=== PATIENT | female | born 1965 | race African-American/Black ===

== ENCOUNTER 2017-01-15 13:21 | Emergency (ER) | payer BC ==
[~2017-01-15] VITALS: Ht 165.1 cm; Wt 67.9 kg
[~2017-01-15 13:21] MED LIST: ASPIR-TRIN325 M1 PO; NOHOMEMEDS; PriLOSEC PO
[2017-01-15 14:02] VITALS: BP 121/78
[2017-01-15] MEDS ORDERED: PEN-VEE K,VEET500 MG PO (17:22)
[2017-01-15] MEDS ORDERED: PERCOCET 5/31 TABLET PO (17:22)
[2017-01-15] MEDS ORDERED: MOTRIN800 MG PO (17:22)
== END 2017-01-15 17:43 | disposition home or self-care (01) ==
LOC: EME 13:21
DX: K08.89 Other specified disorders of teeth and supporting structures (principal); M79.604 Pain in right leg
CPT/HCPCS: 93970; 99281; 99283

== ENCOUNTER → 2017-05-30 | Outpatient (CLI) | payer BC ==
[~2017-05-30] VITALS: Ht 167.6 cm; Wt 72.6 kg
[~2017-05-30] MED LIST changes: +MOTRIN800 MG PO; +PEN-VEE K,VEET500 MG PO; +PERCOCET 5/31 TABLET PO
== END | disposition home or self-care (01) ==
LOC: AMB 10:30
PROC: 0DJD8ZZ Inspection of Lower Intestinal Tract, Via Natural or Artificial Opening Endoscopic (ICD-10-PCS; principal; 2017-05-30)
DX: Z12.11 Encounter for screening for malignant neoplasm of colon (principal); K64.8 Other hemorrhoids
CPT/HCPCS: 93005